=== PATIENT | female | born 2000 | race Two or more races ===

== ENCOUNTER 2023-11-27 12:20 | Outpatient (CLI) | payer MEDICAID | END 2023-11-27 12:21 | disposition critical access hospital (66) | LOC: EMS 12:20 | DX: R10.9 Unspecified abdominal pain (principal); R20.0 Anesthesia of skin | CPT/HCPCS: A0425; A0429; A0999 ==

== ENCOUNTER 2023-11-27 12:40 | Emergency (ER) | payer MEDICAID ==
[2023-11-27 13:20] LABS: BASOPHILS % (AUTO) 0.3 %; EOSINOPHILS % (AUTO) 0.1 %; HCT - HEMATOCRIT 28.4 % (37.0-47.0); LYMPHOCYTES # (AUTO) 0.9 10^3/uL (1.5-3.5); LYMPHOCYTES % (AUTO) 6.4 %; MEAN CORPUSCULAR HEMOGLOBIN 19.6 pg (27.0-31.0); MEAN CORPUSCULAR HGB CONC 28.2 g/dL (32.0-36.0); MEAN CORPUSCULAR VOLUME 69.4 fL (81.0-99.0); MEAN PLATELET VOLUME 9.2 fL (7.9-10.8); MONOCYTES # (AUTO) 0.4 10^3/uL (0.0-1.0); NEUTROPHILS # (AUTO) 12.2 10^3/uL (1.5-6.6); NEUTROPHILS % (AUTO) 89.9 %; PLT - PLATELET COUNT 526 10^3/uL (130-450); RED BLOOD COUNT 4.09 10^6/uL (4.20-5.40); RED CELL DISTRIBUTION WIDTH 18.9 % (12.0-15.0); WHITE BLOOD COUNT 13.6 x10^3/uL (4.8-10.8)
[2023-11-27 13:35] LABS: ALBUMIN 4.2 g/dL (3.2-5.5); ALBUMIN/GLOBULIN RATIO 1.3 (1.0-2.2); BILIRUBIN,TOTAL 0.3 mg/dL (0.2-1.0); CALCIUM 8.7 mg/dL (8.5-10.3); CREATININE 0.7 mg/dL (0.6-1.3); POTASSIUM 3.6 mmol/L (3.5-4.5); TOTAL PROTEIN 7.5 g/dL (6.4-8.9)
[2023-11-27 13:55] LABS: PLATELET ESTIMATE, MANUAL INCREASED (>450,000) (NORMAL); PLATELET MORPHOLOGY NORMAL APPEARANCE (NORMAL); SLIDE REVIEW? Indicated
--- NOTE | 2023-11-27 16:11 | ED Physician Documentation ---
History of Present Illness - Stated complaint Stated Complaint: CRAMPS/ANXIETY - Chief complaint Chief Complaint: Ext Problem - History obtained from History obtained from: Patient - History of Present Illness Timing: Today Pain level max: 6 Pain level now: 3 - Additonal information Additional information: Patient is a 23-year-old female who presents to the emergency department with abdominal cramping, nausea, vomiting and diarrhea today. She states right before the vomiting and diarrhea she felt spasms in her hands and tingling in her arms. She states that currently she feels much better. No fevers. No chills. No recent antibiotics. No recent travel. She denies any possibility of . Review of Systems Constitutional: denies: Fever, Chills Respiratory: denies: Cough GI: denies: Hematemesis, Bloody / black stool : denies: Dysuria, Frequency, Hesitancy, Now EGA Skin: denies: Rash Musculoskeletal: denies: Neck pain, Back pain Neurologic: denies: Headache PD PAST MEDICAL HISTORY - Past Medical History Past Medical History: No - Present Medications Home Medications: Ambulatory Orders Medication Instructions Recorded Confirmed Ferrous Sulfate [Feosol] 325 mg PO DAILY #30 tablet 11/27/23 cephALEXin [Keflex] 500 mg PO Q6H #20 cap 11/27/23 - Allergies Allergies/Adverse Reactions: Allergies Allergy/AdvReac Type Severity Reaction Status Date / Time acetaminophen [From Midol] AdvReac Emesis Verified 11/27/23 15:52 pamabrom [From Midol] AdvReac Emesis Verified 11/27/23 15:52 PD ED PE NORMAL - Vitals Vital signs reviewed: Yes - General General: Alert and oriented X 3, No acute distress - HEENT HEENT: PERRL, Moist mucous membranes - Neck Neck: Supple, no meningeal sign - Cardiac Cardiac: RRR, Strong equal pulses - Respiratory Respiratory: No respiratory distress, Clear bilaterally - Abdomen Abdomen: Soft, Non tender, Non distended - Back Back: No CVA TTP, No spinal TTP - Derm Derm: Warm and dry - Neuro Neuro: Alert and oriented X 3 - Psych Psych: Normal mood, Normal affect Results - Vitals Vitals: Vital Signs - 24 hr 11/27/23 11/27/23 12:45 16:00 Temperature 36.4 C L Heart Rate 84 80 Respiratory 18 17 Rate Blood Pressure 119/64 133/78 H O2 Saturation 100 99 Oxygen O2 Source Room air - Labs Labs: Laboratory Tests 11/27/23 11/27/23 11/27/23 13:15 13:15 16:18 WBC 13.6 H RBC 4.09 L Hgb 8.0 L Hct 28.4 L MCV 69.4 L MCH 19.6 L MCHC 28.2 L RDW 18.9 H Plt Count 526 H MPV 9.2 Neut # (Auto) 12.2 H Lymph # (Auto) 0.9 L [place] # (Auto) 0.4 Eos # (Auto) 0.0 Baso # (Auto) 0.0 Absolute Nucleated RBC 0.00 Nucleated RBC % 0.0 Manual Slide Review Indicated Platelet Estimate INCREASED (>450,000) Platelet Morphology NORMAL APPEARANCE RBC Morph Micro Appear 2+ MICROCYTOSIS Sodium 136 Potassium 3.6 Chloride 105 Carbon Dioxide 26 Anion Gap 5.0 L BUN 14 Creatinine 0.7 Estimated GFR (MDRD) 102 Glucose 128 H Calcium 8.7 Total Bilirubin 0.3 AST 10 ALT 8 L Alkaline Phosphatase 45 Total Protein 7.5 Albumin 4.2 Globulin 3.3 Albumin/Globulin Ratio 1.3 Lipase 24 Urine Color DARK YELLOW Urine Clarity CLOUDY Urine pH 8.5 H Ur Specific [place] 1.010 Urine Protein TRACE Urine Glucose (UA) NEGATIVE Urine Ketones NEGATIVE Urine Occult Blood LARGE H Urine Nitrite NEGATIVE Urine Bilirubin NEGATIVE Urine Urobilinogen 0.2 (NORMAL) Ur Leukocyte Esterase SMALL H Urine RBC TNTC H Urine WBC 11-25 H Urine WBC Clumps PRESENT Ur Squamous Epith Cells RARE Squamous Urine Bacteria Few Ur Microscopic Review INDICATED Urine Culture Comments INDICATED Urine HCG, Qual NEGATIVE PD Medical Decision Making - ED course Complexity details: reviewed results, re-evaluated patient, considered differential, d/w patient ED course: 23-year-old female with nausea vomiting diarrhea x 1 today. Resolved prior to arrival. No significant lab abnormalities other than anemia. She states that she has a history of heavy menses. She has a microcytic anemia, hypochromasia. Likely iron deficiency. Will start her on iron preemptively and have her follow-up with her PCP for further care. Patient also appears to have a UTI and we will place on Keflex for this. Tolerating p.o. without difficulty here. Abdomen is soft, nontender nondistended on serial exam. No CVA tenderness. No evidence of sepsis. No evidence of pyelonephritis. Patient counseled regarding signs and symptoms for which I believe and urgent re-evaluation would be necessary. Patient with good understanding of and agreement to plan and is comfortable going home at this time This document was made in part using voice recognition software. While efforts are made to proofread this document, sound alike and grammatical errors may occur. Departure - Departure Disposition: Home, Self Care Clinical Impression: Anemia Qualifiers: Anemia type: unspecified type Qualified Code(s): D64.9 - Anemia, unspecified UTI (urinary tract infection) Qualifiers: Urinary tract infection type: acute cystitis Hematuria presence: without hematuria Qualified Code(s): N30.00 - Acute cystitis without hematuria Condition: Good Instructions: ED Anemia Iron Deficiency, ED UTI Cystitis Female Follow-Up: Tabitha Del Toro ARNP [Primary Care Provider] - Prescriptions: Ferrous Sulfate [Feosol] 325 mg PO DAILY #30 tablet cephALEXin [Keflex] 500 mg PO Q6H #20 cap Comments: Please follow-up with your doctor for further care. Your prescriptions were sent to [facility] in [place]. Please take all antibiotics until gone. You should have your blood counts rechecked with your doctor in 1 to 2 weeks. You appear to have significant iron deficiency anemia, likely from your heavy menstrual periods. Please return if you worsen. Forms: PCP List
[2023-11-27 16:25] LABS: BILIRUBIN,URINE NEGATIVE (NEGATIVE); GLUCOSE, URINE (UA) NEGATIVE (NEGATIVE); KETONES,URINE (UA) NEGATIVE (NEGATIVE); LEUKOCYTE ESTERASE, URINE SMALL (NEGATIVE); NITRITE,URINE NEGATIVE (NEGATIVE); OCCULT BLOOD,URINE LARGE (NEGATIVE); PH,URINE 8.5 PH (5.0-7.5); PROTEIN,URINE TRACE mg/dL (NEGATIVE); UROBILINOGEN,URINE 0.2 (NORMAL) E.U./dL (NORMAL)
[2023-11-27 16:30] LABS: CLARITY,URINE CLOUDY (CLEAR); HCG UR QUAL NEGATIVE
[2023-11-27 16:38] LABS: RBC,URINE TNTC /HPF (0-5); WBC CLUMPS,URINE PRESENT
[2023-11-27 16:39] LABS: BACTERIA,URINE Few /HPF (None Seen); SQUAMOUS EPITHELIAL CELL,UR RARE Squamous (<= Few)
[2023-11-27] MEDS: cephALEXin 250 MG CAPSULE PO STA (17:04)
[2023-11-27 18:30] VITALS: BP 128/76; O2SAT 98
== END 2023-11-27 18:20 | disposition home or self-care (01) ==
LOC: ED 12:40
DX: D50.8 Other iron deficiency anemias (principal); N30.00 Acute cystitis without hematuria
CPT/HCPCS: 36415; 80053; 81001; 81025; 83690; 85025; 87077; 87086; 87181; 93005; 99283; A9270; 81003